=== PATIENT | female | born 1975 | race American Indian/Alaskan Native ===

== ENCOUNTER 2021-03-19 14:57 | Inpatient (IN) | payer OTHER ==
--- NOTE | 2021-03-19 15:08 | Emergency Department Report ---
ED Neuro Deficit HPI - General Chief Complaint: Neuro Symptoms/Deficit Stated Complaint: aphasia Time Seen by Provider: 03/19/21 14:58 - History of Present Illness Initial Comments: Patient presents by ambulance secondary to stroke-like symptoms. She was at [facility] approximately 30 minutes prior to arrival. She had difficulty speaking. EMS was called. They noticed that she was having difficulty speaking. This seems to have abated during transport. Upon arrival here, patient has no complaint. Neurologically, she states that she does not have any weakness on one side or the other. She has no headache. No blurred vision or double vision per there is no numbness or tingling in the arms or legs or face. She never had symptoms like this before. Symptoms seem to have lasted approximately 30 minutes or less. - Related Data Allergies/Adverse Reactions: Allergies Allergy/AdvReac Type Severity Reaction Status Date / Time No Known Allergies Allergy Verified 03/19/21 15:16 ED Review of Systems ROS: Stated complaint: aphasia Other details as noted in HPI Comment: All other systems reviewed and negative Constitutional: denies: fever Eyes: denies: vision change ENT: denies: throat pain Respiratory: denies: cough Cardiovascular: denies: chest pain Endocrine: denies: unexplained weight loss Gastrointestinal: denies: abdominal pain Genitourinary: denies: dysuria Musculoskeletal: denies: back pain Skin: denies: rash Neurological: as per HPI Hematological/Lymphatic: denies: easy bruising ED Neuro Physical Exam - General Limitations: No Limitations, Other (Pulse ox noted and normal by EMS) General appearance: alert, in no apparent distress Suspected Stroke: Yes - Head Head exam: Present: atraumatic, normocephalic - Eye Eye exam: Present: normal appearance, EOMI. Absent: scleral icterus - ENT ENT exam: Present: normal orophraynx, normal external ear exam - Neck Neck exam: Present: normal inspection. Absent: meningismus - Respiratory Respiratory exam: Present: normal lung sounds bilaterally. Absent: respiratory distress - Cardiovascular Cardiovascular Exam: Present: regular rate, normal rhythm - GI/Abdominal GI/Abdominal exam: Present: soft. Absent: tenderness - Extremities Exam Extremities exam: Present: normal capillary refill. Absent: pedal edema - Back Exam Back exam: Absent: CVA tenderness (R), CVA tenderness (L) - Neurological Exam Neurological exam: Present: alert, oriented X3, CN II-XII intact. Absent: motor sensory deficit - NIHSS Assessment Interval: Baseline 1a. Level of Consciousness: alert/keenly responsive 1b. LOC Questions: answers both correctly 1c. LOC Commands: performs tasks correctly 2. Best Gaze: normal 3. Visual: no visual loss 4. Facial Palsy: normal symmetrical movement 5b. Motor Arm Right: no drift 5a. Motor Arm Left: no drift 6a. Motor Leg Left: no drift 6b. Motor Leg Right: no drift 7. Limb Ataxia: absent 8. Sensory: normal 9. Best Language: no aphasia 10. Dysarthria: normal 11. Extinction/Inattention: no abnormality Total Score: 0 Stroke Severity: No Stroke Symptoms - Psychiatric Psychiatric exam: Present: normal affect, normal mood - Skin Skin exam: Present: warm, dry ED Course Vital Signs 03/19/21 15:16 Temperature 98 F Pulse Rate 78 Respiratory 16 Rate Blood Pressure 156/93 [Left] O2 Sat by Pulse 99 Oximetry - Reevaluation(s) Reevaluation #1: 03/19/21 14:55 EMS was met upon arrival. Patient was taken emergently to CT. Old records noted. Reevaluation #2: 03/19/21 15:32 Patient was discussed with the neurologist. CT was noted. There is no i ndication for thrombolytic therapy as the patient has a resolved presentation at this time with an NIH score of zero. Reevaluation #3: 03/19/21 16:54 Patient was admitted here. Case was discussed with the [facility] telephonic physician. They do not have the ability to facilitate an outpatient work-up given the Covid pandemic. They also have no beds available for this patient. Case was discussed with the hospitalist here who agrees to admit. - Lab Data Result diagrams: 03/19/21 15:19 03/19/21 15:19 Lab Results 03/19/21 03/19/21 03/19/21 Range/Units 15:02 15:19 15:19 WBC 6.3 (4.5-11.0) K/mm3 RBC 5.90 H (3.65-5.03) M/mm3 Hgb 15.2 H (10.1-14.3) gm/dl Hct 48.0 H (30.3-42.9) % MCV 81 (79-97) fl MCH 26 L (28-32) pg MCHC 32 (30-34) % RDW 14.3 (13.2-15.2) % Plt Count 274 (140-440) K/mm3 Lymph % (Auto) 27.5 (13.4-35.0) % Walsh % (Auto) 7.6 H (0.0-7.3) % Eos % (Auto) 4.0 (0.0-4.3) % Baso % (Auto) 1.1 (0.0-1.8) % Lymph # (Auto) 1.7 (1.2-5.4) K/mm3 Walsh # (Auto) 0.5 (0.0-0.8) K/mm3 Eos # (Auto) 0.3 (0.0-0.4) K/mm3 Baso # (Auto) 0.1 (0.0-0.1) K/mm3 Seg Neutrophils % 59.8 (40.0-70.0) % Seg Neutrophils # 3.8 (1.8-7.7) K/mm3 PT 12.6 (12.2-14.9) Sec. INR 0.85 L (0.87-1.13) APTT 24.5 (24.2-36.6) Sec. Thrombin Time 17.3 (15.1-19.6) Sec. Sodium (137-145) mmol/L Potassium (3.6-5.0) mmol/L Chloride (98-107) mmol/L Carbon Dioxide (22-30) mmol/L Anion Gap mmol/L BUN (7-17) mg/dL Creatinine (0.6-1.2) mg/dL Estimated GFR ml/min BUN/Creatinine Ratio % Glucose (65-100) mg/dL POC Glucose 79 (70-105) mg/dL Calcium (8.4-10.2) mg/dL Total Creatine Kinase (30-135) units/L CK-MB (CK-2) (0.0-4.0) ng/mL CK-MB (CK-2) Rel Index (0-4) Troponin T (0.00-0.029) ng/mL 03/19/21 Range/Units 15:19 WBC (4.5-11.0) K/mm3 RBC (3.65-5.03) M/mm3 Hgb (10.1-14.3) gm/dl Hct (30.3-42.9) % MCV (79-97) fl MCH (28-32) pg MCHC (30-34) % RDW (13.2-15.2) % Plt Count (140-440) K/mm3 Lymph % (Auto) (13.4-35.0) % Walsh % (Auto) (0.0-7.3) % Eos % (Auto) (0.0-4.3) % Baso % (Auto) (0.0-1.8) % Lymph # (Auto) (1.2-5.4) K/mm3 Walsh # (Auto) (0.0-0.8) K/mm3 Eos # (Auto) (0.0-0.4) K/mm3 Baso # (Auto) (0.0-0.1) K/mm3 Seg Neutrophils % (40.0-70.0) % Seg Neutrophils # (1.8-7.7) K/mm3 PT (12.2-14.9) Sec. INR (0.87-1.13) APTT (24.2-36.6) Sec. Thrombin Time (15.1-19.6) Sec. Sodium 138 (137-145) mmol/L Potassium 3.3 L (3.6-5.0) mmol/L Chloride 100.8 (98-107) mmol/L Carbon Dioxide 22 (22-30) mmol/L Anion Gap 19 mmol/L BUN 16 (7-17) mg/dL Creatinine 0.6 (0.6-1.2) mg/dL Estimated GFR > 60 ml/min BUN/Creatinine Ratio 27 % Glucose 89 (65-100) mg/dL POC Glucose (70-105) mg/dL Calcium 9.5 (8.4-10.2) mg/dL Total Creatine Kinase 112 (30-135) units/L CK-MB (CK-2) 1.3 (0.0-4.0) ng/mL CK-MB (CK-2) Rel Index 1.1 (0-4) Troponin T < 0.010 (0.00-0.029) ng/mL Rhythm strip: Normal sinus rhythm without ectopy per monitor observe 10 seconds. - EKG Data -: EKG Interpreted by Me 03/19/21 16:55 EKG shows normal sinus rhythm with normal intervals per there is no ectopy noted. There is no old EKG for comparison. - Radiology Data Radiology results: report reviewed - Medical Decision Making Patient presents by EMS secondary to expressive aphasia. This is consistent with TIA as her symptoms have completely resolved. And a score is 0. There is no indication for thrombolytic therapy. We cannot facilitate expedited outpatient work-up. Based on that, and due to the Covid pandemic, patient be kept here for her completed TIA work-up. There is no evidence of tumor or mass. There is no evidence of bleed. She did not have a headache suggestive of an atypical migraine. Critical Care Time: No Critical care attestation.: If time is entered above; I have spent that time in minutes in the direct care of this critically ill patient, excluding procedure time. ED Disposition Clinical Impression: TIA (transient ischemic attack) Disposition: ADMITTED INPATIENT Is pt being admited?: Yes Condition: Stable
[2021-03-19 15:30] LABS: Basophils # (Auto) 0.1 K/mm3 (0.0-0.1); Basophils % (Auto) 1.1 % (0.0-1.8); Eosinophils # (Auto) 0.3 K/mm3 (0.0-0.4); Hemoglobin 15.2 gm/dl (10.1-14.3); Lymphocytes # (Auto) 1.7 K/mm3 (1.2-5.4); Lymphocytes % (Auto) 27.5 % (13.4-35.0); Mean Corpuscular HGB Conc 32 % (30-34); Mean Corpuscular Volume 81 fl (79-97); Monocytes # (Auto) 0.5 K/mm3 (0.0-0.8); Monocytes % (Auto) 7.6 % (0.0-7.3); Platelet Count 274 K/mm3 (140-440); Red Cell Distribution Width 14.3 % (13.2-15.2)
--- NOTE | 2021-03-19 15:35 | Cat Scan Report ---
CT BRAIN: 03/19/2021 INDICATION / CLINICAL INFORMATION: Stroke symptoms. No information provided. COMPARISON: None available. FINDINGS: BRAIN/INTRACRANIAL STRUCTURES: Unenhanced CT images of the brain demonstrate no evidence of abnormali ty. Ventricles and sulci are normal in size and shape. There is no evidence of ischemic injury, hemorrhage, or mass. There are no abnormal extra-axial fluid collections. EXTRACRANIAL STRUCTURES: Unremarkable. IMPRESSION: Normal CT of the brain. Notification: in the emergency department unavailable at 1530 hours ET. Message on report availa bility transmitted. All CT scans at this location are performed using dose reduction to ALARA by means of automated expos ure control. Signer Name: Petr Hurley MD Signed: 03/19/2021 3:30 PM Workstation Name: [employer]
--- NOTE | 2021-03-19 15:50 | Emergency Department Report ---
ED Neuro Deficit HPI - General Chief Complaint: Neuro Symptoms/Deficit Stated Complaint: aphasia Time Seen by Provider: 03/19/21 14:58 Source: patient Mode of arrival: Ambulatory Limitations: No Limitations, Other (Pulse ox noted and normal by EMS) - History of Present Illness Initial Comments: [facility] Consult Note # Demographics Consult Type: Acute Stroke Level 1 (0-4.5 hrs) Patient Location: Emergency Room First Name: Arti Last Name: Nolberto Date of : 1975 Age: 45 Gender: Female Facility: [facility] Time of Initial Page ( Time): 03/19/2021, 14:42 Time of Return Call ( Time): 03/19/2021, 14:43 # HPI Chief Complaint: speech changes Handedness: Right History: Symptoms resolved after grocery shopping with aphasia. EMS said at 2:20pm with expressive aphasia. The patient denied associated headache or history of migraine. Last Known Normal: I have collected independent history specific to time last normal or last known well. We have collaborated with the provider and at this time, we have the most current timeline with the information that is available. 2:10pm Duration: resolved minutes Possible Thrombolytic candidate: not on warfarin or NOACs Associated Symptoms: no headache Quality: no numbness no weakness word finding difficulty # Scores Time of exam and NIHSS ( Time): 03/19/2021, 15:00 Level of Consciousness 1a: [0] = Alert; keenly responsive LOC Questions 1b: [0] = Answers both questions correctly LOC Commands 1c: [0] = Performs both tasks correctly Best Gaze 2: [0] = Normal Visual 3: [0] = No visual loss Facial Palsy 4: [0] = Normal symmetrical movements Motor Arm Left 5a: [0] = No drift Motor Arm Right 5b: [0] = No drift Motor Leg Left 6a: [0] = No drift Motor Leg Right 6b: [0] = No drift Limb Ataxia 7: [0] = Absent Sensory 8: [0] = Normal Best Language 9: [0] = No aphasia Dysarthria 10: [0] = Normal Extinction and Inattention 11: [0] = No abnormality NIHSS Total: 0 # Exam SBP: 147 DBP: 96 Mental Status: awake alert and oriented x 3 follows commands Language: normal speech # ROS Constitutional: no fever Pulmonary: no shortness of breath Cardiovascular: no chest pain # PMH-FH-SH Past Medical History: denies Social History: non-smoker non-drinker no drugs Medications: Diclonfenac Allergies: NKDA # Data Glucose: [address] personally read by me (Eastern Time): 03/19/2021, 15:[address]: no bleed preliminarily reviewed by me, please refer to radiology read for official reading # Assessment Impression: Stroke Mimic Transient Ischemic Attack TIA versus stroke mimic (? migraine) - no reported history of the latter # Plan Thrombolytic/Intervention: NOT IV Thrombolysis or IA Intervention candidate Thrombolytic Exclusion (< 3 hour window): NIHSS = 0 Target Blood Pressure: SBP < 220 Imaging: (urgency: STAT): CT Angiogram Head and CT Angiogram Neck AND call back with results if abnormal Imaging: (urgency: routine): MRI Brain without contrast Diagnostic Test: echo without bubble study Therapy/Evaluation: NPO until swallow evaluation PT/OT evaluation Medication: aspirin 81 mg PLUS clopidogrel (Plavix) 75 mg for 21 days, then monotherapy therafter start statin with goal of LDL < 70 DVT Prophylaxis: SCD chemical DVT prophylaxis Other: LDL < 70 permissive hypertension telemetry monitoring I have discussed my recommendations with the referring provider Disposition: admit - Related Data Allergies/Adverse Reactions: Allergies Allergy/AdvReac Type Severity Reaction Status Date / Time No Known Allergies Allergy Verified 03/19/21 15:16 ED Review of Systems ROS: Stated complaint: aphasia Other details as noted in HPI Constitutional: denies: fever Eyes: denies: vision change ENT: denies: throat pain Respiratory: denies: cough Cardiovascular: denies: chest pain Endocrine: denies: unexplained weight loss Gastrointestinal: denies: abdominal pain Genitourinary: denies: dysuria Musculoskeletal: denies: back pain Skin: denies: rash Neurological: as per HPI Hematological/Lymphatic: denies: easy bruising ED Past Medical Hx - Past Medical History Previous Medical History?: Yes Hx Arthritis: Yes - Surgical History Past Surgical History?: No ED Neuro Physical Exam - General Limitations: No Limitations, Other (Pulse ox noted and normal by EMS) General appearance: alert, in no apparent distress Suspected Stroke: Yes - NIHSS Assessment Interval: Baseline (Please see NIHSS in copied BSL note.) 1a. Level of Consciousness: alert/keenly responsive 1b. LOC Questions: answers both correctly 1c. LOC Commands: performs tasks correctly 2. Best Gaze: normal 3. Visual: no visual loss 4. Facial Palsy: normal symmetrical movement 5b. Motor Arm Right: no drift 5a. Motor Arm Left: no drift 6a. Motor Leg Left: no drift 6b. Motor Leg Right: no drift 7. Limb Ataxia: absent 8. Sensory: normal 9. Best Language: no aphasia 10. Dysarthria: normal 11. Extinction/Inattention: no abnormality Total Score: 0 Stroke Severity: No Stroke Symptoms ED Course Vital Signs 03/19/21 15:16 Temperature 98 F Pulse Rate 78 Respiratory 16 Rate Blood Pressure 156/93 [Left] O2 Sat by Pulse 99 Oximetry - Lab Data Result diagrams: 03/19/21 15:19 Lab Results 03/19/21 03/19/21 Range/Units 15:02 15:19 WBC 6.3 (4.5-11.0) K/mm3 RBC 5.90 H (3.65-5.03) M/mm3 Hgb 15.2 H (10.1-14.3) gm/dl Hct 48.0 H (30.3-42.9) % MCV 81 (79-97) fl MCH 26 L (28-32) pg MCHC 32 (30-34) % RDW 14.3 (13.2-15.2) % Plt Count 274 (140-440) K/mm3 Lymph % (Auto) 27.5 (13.4-35.0) % [place] % (Auto) 7.6 H (0.0-7.3) % Eos % (Auto) 4.0 (0.0-4.3) % Baso % (Auto) 1.1 (0.0-1.8) % Lymph # (Auto) 1.7 (1.2-5.4) K/mm3 [place] # (Auto) 0.5 (0.0-0.8) K/mm3 Eos # (Auto) 0.3 (0.0-0.4) K/mm3 Baso # (Auto) 0.1 (0.0-0.1) K/mm3 Seg Neutrophils % 59.8 (40.0-70.0) % Seg Neutrophils # 3.8 (1.8-7.7) K/mm3 POC Glucose 79 (70-105) mg/dL Critical care attestation.: If time is entered above; I have spent that time in minutes in the direct care of this critically ill patient, excluding procedure time. ED Disposition Clinical Impression: TIA (transient ischemic attack) Disposition: ADMITTED INPATIENT Is pt being admited?: Yes Condition: Stable
[2021-03-19 15:52] LABS: INR 0.85 (0.87-1.13); Partial Thromboplastin Time 24.5 Sec. (24.2-36.6); Thrombin Time 17.3 Sec. (15.1-19.6)
[2021-03-19 15:54] LABS: Creatine Kinase MB 1.3 ng/mL (0.0-4.0)
[2021-03-19 15:56] LABS: Blood Urea Nitrogen 16 mg/dL (7-17); Calcium 9.5 mg/dL (8.4-10.2); Hemolysis Index 6
[2021-03-19 16:00] LABS: BUN/Creatinine Ratio 27
[2021-03-19] MEDS ORDERED: ASPIRIN 81 MG TAB CHEW PO ONE (17:32)
[2021-03-19] MEDS ORDERED: PROMETHAZINE 25 MG RECT SUPP PR PRN ×2 (17:36→17:45)
[2021-03-19] MEDS ORDERED: ONDANSETRON 4 MG/2 ML INJ IV PRN ×2 (17:36→17:45)
[2021-03-19] MEDS ORDERED: MAGNESIUM HYDROXIDE (MOM) ORAL LIQD UDC PO PRN ×2 (17:36→17:45)
[2021-03-19] MEDS ORDERED: ACETAMINOPHEN 325 MG TAB PO PRN (17:36)
[2021-03-19] MEDS ORDERED: METOCLOPRAMIDE 10 MG TAB PO PRN ×2 (17:36→17:45)
[2021-03-19] MEDS ORDERED: oxyCODONE /ACETAMINOPHEN 5-325MG TAB PO PRN (17:45)
[2021-03-19] MEDS ORDERED: HYDROmorphone 1 MG/1 ML INJ IV PRN (17:45)
--- NOTE | 2021-03-19 19:32 | Cat Scan Report ---
CT angio head INDICATION / CLINICAL INFORMATION: 45 years Female; tia. TECHNIQUE: Thin cut axial images obtained through the head during IV bolus contrast administration. S agittal, coronal, and 3 plane MIP reconstructions performed by the technologist. NASCET type criteria used evaluate stenoses. Automated exposure control utilized for radiation reduction purposes. . COMPARISON: None available. FINDINGS: INTERNAL CAROTID ARTERIES: No significant narrowing appreciated. VERTEBROBASILAR SYSTEM: No significant narrowing appreciated. DISTAL BRANCHES: Distal branches of the anterior, middle, and posterior cerebral arteries are fairly symmetric in appearance and number. ANEURYSM: None identified. ADDITIONAL FINDINGS: Remainder of the surrounding soft tissues are grossly normal. IMPRESSION: 1. No significant abnormality on this CTA of the head. 2. Note, this constellation of studies does not exclude ischemia. Follow-up with diffusion imaging by MRI, as clinically warranted. Signer Name: Aris Anne MD, III Signed: 03/19/2021 7:27 PM Workstation Name: [id number]
--- NOTE | 2021-03-19 19:35 | Cat Scan Report ---
CT angio neck INDICATION / CLINICAL INFORMATION: 45 years Female; tia. TECHNIQUE: Thin cut axial images obtained through the head during IV bolus contrast administration. S agittal, coronal, and 3 plane MIP reconstructions performed by the technologist. NASCET type criteria used evaluate stenoses. All CT scans at this location are performed using CT dose reduction for ALAR A by means of automated exposure control. . COMPARISON: None available. FINDINGS: ARCH: Normal aortic arch branching suggested. CAROTID ARTERIES: The visualized common and internal carotid arteries are widely patent. VERTEBRAL ARTERIES: Codominant vertebral system seen. No significant stenosis appreciated. ADDITIONAL FINDINGS: Remainder of the surrounding soft tissues are grossly normal. IMPRESSION: No significant stenosis appreciated on this CTA of the neck. Signer Name: Aris Anne MD, III Signed: 03/19/2021 7:31 PM Workstation Name: [facility] INSTITUTEHigh[facility] PressKEVIN [id number]
--- NOTE | 2021-03-19 20:18 | History and Physical Report ---
History of Present Illness Date of admission: 03/19/21 16:56 Chief complaint: I could not talk right History of present illness: 45 YO Female with no PMH presents ED for evaluation. Patient reports "I could not talk right". Patient states that she experienced a sudden onset of slurred speech approximate 30 minutes prior to arrival. Patient transported [facility] via private vehicle for further care and evaluation of the aforementioned symptoms. The patient was seen and evaluated in the emergency department. All lab and imaging studies reviewed. Patient was found to have a focal neurologic deficit in the emergency department. A code stroke was called. Teleneurology was consulted. The patient was found to have clinical symptoms consistent with CVA. Patient placed in observation status and admitted to medical floor and initiated on CVA protocol. Patient had fever, chills, chest pain, palpitation, productive cough, trauma, syncope, recent ill contacts, or known exposure to COVID-19. No prior admission for review. No medication listed at time of admission reconciliation. Past History Past Medical History: No medical history Past Surgical History: No surgical history Social history: , lives with family Family history: hypertension Medications and Allergies Allergies Allergy/AdvReac Type Severity Reaction Status Date / Time No Known Allergies Allergy Verified 03/19/21 15:16 Active Meds: Active Medications Acetaminophen (Acetaminophen 325 Mg Tab) 650 mg PO Q4H PRN PRN Reason: Pain, Mild (1-3) Aspirin (Aspirin 325 Mg Tab) 325 mg PO QDAY ANGELI Atorvastatin Calcium (Atorvastatin 40 Mg Tab) 40 mg PO QHS ANGELI Bisacodyl (Bisacodyl 10 Mg Rect Supp) 10 mg MI QDAY PRN PRN Reason: Constipation Hydromorphone HCl (Hydromorphone 1 Mg/1 Ml Inj) 0.5 mg IV Q23H PRN PRN Reason: Pain , Severe (7-10) Magnesium Hydroxide (Magnesium Hydroxide (Mom) Oral Liqd Udc) 30 ml PO Q4H PRN PRN Reason: Constipation Metoclopramide HCl (Metoclopramide 10 Mg Tab) 10 mg PO Q6H PRN PRN Reason: Nausea And Vomiting Ondansetron HCl (Ondansetron 4 Mg/2 Ml Inj) 4 mg IV Q8H PRN PRN Reason: Nausea And Vomiting Oxycodone/Acetaminophen (Oxycodone /Acetaminophen 5-325mg Tab) 1 tab PO Q16H P RN PRN Reason: Pain, Moderate (4-6) Promethazine HCl (Promethazine 25 Mg Rect Supp) 25 mg MI Q6H PRN PRN Reason: Nausea And Vomiting Sodium Chloride (Sodium Chloride 0.9% 10 Ml Flush Syringe) 10 ml IV PRN PRN PRN Reason: LINE FLUSH Review of Systems Constitutional: no weight loss, no weight gain Ears, nose, mouth and throat: no ear pain, no tinnitis, no decreased hearing, no nasal congestion Breasts: no change in shape, no mass Cardiovascular: no chest pain, no orthopnea, no palpitations, no edema, no syncope Respiratory: no cough, no excessive sputum, no hemoptysis Gastrointestinal: no abdominal pain, no nausea, no vomiting, no diarrhea, no change in bowel habits Genitourinary Female: no pelvic pain, no flank pain, no dysuria, no urinary frequency, no urgency Rectal: no pain, no incontinence, no bleeding Musculoskeletal: no neck stiffness, no neck pain, no arm numbness/tingling, no low back pain Integumentary: no rash, no pruritis, no redness, no sores, no wounds Neurological: weakness, change in speech, no tingling Psychiatric: no anxiety, no memory loss, no change in sleep habits, no sleep disturbances, no insomnia, no change in libido, no suicidal ideation Endocrine: no cold intolerance, no polyphagia, no excessive thirst, no polyuria, no nocturia Hematologic/Lymphatic: no easy bruising Allergic/Immunologic: no urticaria, no allergic rhinitis, no wheezing Exam - Constitutional Vitals: Temp Pulse Resp BP Pulse Ox 98 F 74 16 154/93 96 03/19/21 15:16 03/19/21 17:52 03/19/21 17:52 03/19/21 17:52 03/19/21 17:52 General appearance: Present: no acute distress, well-nourished - EENT Eyes: Present: PERRL ENT: hearing intact, clear oral mucosa - Neck Neck: Present: supple, normal ROM - Respiratory Respiratory effort: normal Respiratory: bilateral: CTA - Cardiovascular Heart Sounds: Present: S1 & S2. Absent: rub, click - Extremities Extremities: pulses symmetrical, No edema Peripheral Pulses: within normal limits - Abdominal General gastrointestinal: Present: soft, non-tender, non-distended, normal bowel sounds Female genitourinary: Present: normal - Integumentary Integumentary: Present: clear, warm, dry - Musculoskeletal Musculoskeletal: gait normal, strength equal bilaterally - Psychiatric Psychiatric: appropriate mood/affect, intact judgment & insight - Neurologic Neurologic: CNII-XII intact, moves all extremities HEART Score - HEART Score Troponin: Troponin T < 0.010 ng/mL (0.00-0.029) 03/19/21 15:19 Results - Labs CBC & Chem 7: 03/19/21 15:19 03/19/21 15:19 Labs: Abnormal lab results 03/19/21 03/19/21 03/19/21 Range/Units 15:19 15:19 15:19 RBC 5.90 H (3.65-5.03) M/mm3 Hgb 15.2 H (10.1-14.3) gm/dl Hct 48.0 H (30.3-42.9) % MCH 26 L (28-32) pg [place] % (Auto) 7.6 H (0.0-7.3) % INR 0.85 L (0.87-1.13) Potassium 3.3 L (3.6-5.0) mmol/L Assessment and Plan - Patient Problems (1) CVA (cerebral vascular accident) Current Visit: Yes Status: Acute Plan to address problem: CVA protocol: CT head, neuro check, seizure precautions, physical therapy consulted, Occupational Therapy consulted, speech therapy consulted, antiplatelet therapy, lipid panel, statin therapy, telemetry neurology consulted, echocardiogram, carotid Doppler. (2) DVT prophylaxis Current Visit: Yes Status: Acute Plan to address problem: SCD to bilateral lower extremities while in bed, patient is ambulatory
[2021-03-20 06:10] LABS: Chol/HDL Ratio 3.89 %
--- NOTE | 2021-03-20 10:09 | Progress Note ---
Assessment and Plan Assessment and plan: Acute CVA Hypokalemia 03/20/2021. Patient reportedly with dysarthria only for approximately 30 minutes prior to admission. Continue CVA protocol. Follow-up echocardiogram and MRI. Await PT/OT/speech evaluation. Continue secondary prevention with atorvastatin and aspirin. Neurology consultation pending History Interval history: No new issues overnight Hospitalist Physical - Constitutional Vitals: Temp Pulse Resp BP Pulse Ox 98 F 68 20 114/75 98 03/19/21 15:16 03/20/21 05:00 03/20/21 05:00 03/20/21 05:00 03/20/21 05:00 General appearance: Present: no acute distress, well-nourished - EENT Eyes: Present: PERRL, EOM intact ENT: hearing intact, clear oral mucosa, dentition normal - Neck Neck: Present: supple, normal ROM - Respiratory Respiratory effort: normal Respiratory: bilateral: CTA - Cardiovascular Rhythm: regular Heart Sounds: Present: S1 & S2. Absent: gallop, rub - Extremities Extremities: no ischemia, No edema, Full ROM - Abdominal General gastrointestinal: soft, non-tender, non-distended, normal bowel sounds - Integumentary Integumentary: Present: clear, warm, dry - Neurologic Neurologic: CNII-XII intact, moves all extremities HEART Score - HEART Score Troponin: Troponin T < 0.010 ng/mL (0.00-0.029) 03/19/21 15:19 Results - Labs CBC & Chem 7: 03/19/21 15:19 03/19/21 15:19 Labs: Laboratory Last Values WBC 6.3 K/mm3 (4.5-11.0) 03/19/21 15:19 RBC 5.90 M/mm3 (3.65-5.03) H 03/19/21 15:19 Hgb 15.2 gm/dl (10.1-14.3) H 03/19/21 15:19 Hct 48.0 % (30.3-42.9) H 03/19/21 15:19 MCV 81 fl (79-97) 03/19/21 15:19 MCH 26 pg (28-32) L 03/19/21 15:19 MCHC 32 % (30-34) 03/19/21 15:19 RDW 14.3 % (13.2-15.2) 03/19/21 15:19 Plt Count 274 K/mm3 (140-440) 03/19/21 15:19 Lymph % (Auto) 27.5 % (13.4-35.0) 03/19/21 15:19 Lea % (Auto) 7.6 % (0.0-7.3) H 03/19/21 15:19 Eos % (Auto) 4.0 % (0.0-4.3) 03/19/21 15:19 Baso % (Auto) 1.1 % (0.0-1.8) 03/19/21 15:19 Lymph # (Auto) 1.7 K/mm3 (1.2-5.4) 03/19/21 15:19 Lea # (Auto) 0.5 K/mm3 (0.0-0.8) 03/19/21 15:19 Eos # (Auto) 0.3 K/mm3 (0.0-0.4) 03/19/21 15:19 Baso # (Auto) 0.1 K/mm3 (0.0-0.1) 03/19/21 15:19 Seg Neutrophils % 59.8 % (40.0-70.0) 03/19/21 15:19 Seg Neutrophils # 3.8 K/mm3 (1.8-7.7) 03/19/21 15:19 PT 12.6 Sec. (12.2-14.9) 03/19/21 15:19 INR 0.85 (0.87-1.13) L 03/19/21 15:19 APTT 24.5 Sec. (24.2-36.6) 03/19/21 15:19 Thrombin Time 17.3 Sec. (15.1-19.6) 03/19/21 15:19 Sodium 138 mmol/L (137-145) 03/19/21 15:19 Potassium 3.3 mmol/L (3.6-5.0) L 03/19/21 15:19 Chloride 100.8 mmol/L (98-107) 03/19/21 15:19 Carbon Dioxide 22 mmol/L (22-30) 03/19/21 15:19 Anion Gap 19 mmol/L 03/19/21 15:19 BUN 16 mg/dL (7-17) 03/19/21 15:19 Creatinine 0.6 mg/dL (0.6-1.2) 03/19/21 15:19 Estimated GFR > 60 ml/min 03/19/21 15:19 BUN/Creatinine Ratio 27 % 03/19/21 15:19 Glucose 89 mg/dL (65-100) 03/19/21 15:19 POC Glucose 79 mg/dL (70-105) 03/19/21 15:02 Calcium 9.5 mg/dL (8.4-10.2) 03/19/21 15:19 Total Creatine Kinase 112 units/L (30-135) 03/19/21 15:19 CK-MB (CK-2) 1.3 ng/mL (0.0-4.0) 03/19/21 15:19 CK-MB (CK-2) Rel Index 1.1 (0-4) 03/19/21 15:19 Troponin T < 0.010 ng/mL (0.00-0.029) 03/19/21 15:19 Triglycerides 83 mg/dL (2-149) 03/20/21 04:00 Cholesterol 187 mg/dL (50-199) 03/20/21 04:00 LDL Cholesterol Direct 123 mg/dL (50-130) 03/20/21 04:00 HDL Cholesterol 48 mg/dL (40-59) 03/20/21 04:00 Cholesterol/HDL Ratio 3.89 % 03/20/21 04:00 Active Medications - Current Medications Current Medications: Generic Name Dose Route Start Last Admin Trade Name Freq PRN Reason Stop Dose Admin Acetaminophen 650 mg 03/19/21 17:45 Acetaminophen 325 Mg Tab PO Q4H PRN Pain, Mild (1-3) Aspirin 325 mg 03/20/21 10:00 Aspirin 325 Mg Tab PO QDAY ANGELI Atorvastatin Calcium 40 mg 03/19/21 22:00 03/20/21 00:35 Atorvastatin 40 Mg Tab PO 40 mg QHS ANGELI Administration Bisacodyl 10 mg 03/19/21 17:45 Bisacodyl 10 Mg Rect Supp GA QDAY PRN Constipation Hydromorphone HCl 0.5 mg 03/19/21 17:45 Hydromorphone 1 Mg/1 Ml Inj IV Q23H PRN Pain , Severe (7-10) Magnesium Hydroxide 30 ml 03/19/21 17:36 Magnesium Hydroxide (Mom) Oral Liqd Udc PO Q4H PRN Constipation Metoclopramide HCl 10 mg 03/19/21 17:45 Metoclopramide 10 Mg Tab PO Q6H PRN Nausea And Vomiting Ondansetron HCl 4 mg 03/19/21 17:45 Ondansetron 4 Mg/2 Ml Inj IV Q8H PRN Nausea And Vomiting Oxycodone/Acetaminophen 1 tab 03/19/21 17:45 Oxycodone /Acetaminophen 5-325mg Tab PO Q16H PRN Pain, Moderate (4-6) Promethazine HCl 25 mg 03/19/21 17:36 Promethazine 25 Mg Rect Supp GA Q6H PRN Nausea And Vomiting Sodium Chloride 10 ml 03/19/21 17:45 Sodium Chloride 0.9% 10 Ml Flush Syringe IV PRN PRN LINE FLUSH
--- NOTE | 2021-03-20 10:46 | Magnetic Resonance Report ---
MRI BRAIN WITHOUT CONTRAST INDICATION / CLINICAL INFORMATION: tia. TECHNIQUE: Multiplanar, multisequence MR images of the brain were obtained. COMPARISON: Head CT 03/19/2021 FINDINGS: BRAIN / INTRACRANIAL CONTENTS: A region of restricted diffusion is seen along the lateral aspect of the left parietal and occipital lobes. Corresponding decreased signal intensity is seen on ADC map imaging. Cortical hyperintensity i s seen in this same distribution on FLAIR and T2-weighted imaging. Findings indicate the presence of an acute cortical infarction probably in a posterior division left MCA distribution. No additional re gions of abnormal signal intensity are identified. There is no evidence of hemorrhagic transformation . Ventricles and cortical sulci are normal in size and configuration. There is no mass effect. No evide nce of intracranial hemorrhage or extra-axial fluid collection is seen. The brainstem and cerebellum have an unremarkable appearance. MIDLINE STRUCTURES:No abnormalities are seen to involve the pituitary gland. Pineal region has an unr emarkable appearance. CRANIOCERVICAL JUNCTION: No abnormalities are identified at the craniocervical junction. VASCULAR FLOW-VOIDS: Normal flow-voids are present within the major intracranial vessels. ORBITS: The orbits have an unremarkable appearance. SINUSES / MASTOIDS: There is no indication of inflammatory disease in the paranasal sinuses or mastoi d air cells. IMPRESSION: 1. Findings indicate acute infarction along the posterior lateral aspect of the left parietal and occ ipital lobes as described above. There is no indication of hemorrhagic transformation. Signer Name: Bertin Campbell MD Signed: 03/20/2021 10:41 AM Workstation Name: [id number]
[2021-03-20] MEDS ORDERED: POTASSIUM CHLORIDE ER 20 MEQ TAB PO ONE (11:32)
[2021-03-20] MEDS: ASPIRIN 325 MG TAB PO SCH (12:14)
--- NOTE | 2021-03-20 13:17 | Electrocardiograph Report ---
[facility] Test Date: 2021-03-19 Test Time: 15:34:24 Pat Name: LUL RODRIGUZE Department: Room: A476 1 Gender: F Carpenter Assistant: COURTNEY : 1975 Requested By: NAZANIN PIERCE Order Number: [id number] Reading MD: Oneil Yap Measurements Intervals Lilly Rate: 81 P: 65 OK: 158 QRS: 36 QRSD: 95 T: -5 QT: 362 QTc: 420 Interpretive Statements Sinus rhythm Low voltage, precordial leads Borderline T abnormalities, diffuse leads No previous ECG available for comparison Electronically Signed On 03-20-2021 13:16:50 EST by Oneil Yap
--- NOTE | 2021-03-20 15:41 | Vascular Lab Report ---
DUPLEX DOPPLER ULTRASOUND CAROTID, BILATERAL INDICATION / CLINICAL INFORMATION: stroke. COMPARISON: CTA neck 03/19/2021. FINDINGS: RIGHT CAROTID: No significant atherosclerotic plaque. - PLAQUE ESTIMATE (%): < 50% - CCA velocity: 93 cm/sec. - ICA peak systolic velocity: 114 cm/sec. - ICA/CCA PSV Ratio: Less than 2. Right Vertebral Artery: Antegrade flow. LEFT CAROTID: Mild noncalcified atherosclerotic plaque. - PLAQUE ESTIMATE (%): < 50% - CCA velocity: 96 cm/sec. - ICA peak systolic velocity: 102 cm/sec. - ICA/CCA PSV Ratio: Less than 2. Left Vertebral Artery: Antegrade flow. IMPRESSION: 1. Right Internal Carotid Artery: Less than 50% diameter stenosis. 2. Left Internal Carotid Artery: Less than 50% diameter stenosis. Velocity criteria are extrapolated from diameter data as defined by the Society of Radiologists in Ul trasound Consensus Conference, Radiology 2003; 229;340-346. NO STENOSIS (NORMAL) - Plaque = none; ICA PSV < 125 cm/sec; ICA/CCA PSV Ratio < 2.0 <50% STENOSIS - Plaque < 50%; ICA PSV < 125 cm/sec; ICA/CCA PSV Ratio < 2.0 50-69% STENOSIS - Plaque > 50%; ICA PSV = 125-230 cm/sec; ICA/CCA PSV Ratio = 2.0-4.0 >70% BUT <100% STENOSIS - Plaque > 50%; ICA PSV > 230 cm/sec; ICA/CCA PSV Ratio > 4.0 NEAR OCCLUSION - Plaque = visible lumen; ICA PSV = high/low/none; ICA/CCA PSV Ratio = variable TOTAL OCCLUSION - Plaque = no lumen; ICA PSV = none; ICA/CCA PSV Ratio = N/A Scribed by: Marisela Lagos RDMS, RVT Scribed: 03/20/2021 12:22 PM I have reviewed the images, agree with this report, and edited this report as needed. Signer Name: Willie Arroyo MD Signed: 03/20/2021 3:37 PM Workstation Name: [id number]
--- NOTE | 2021-03-20 16:01 | Consultation ---
History of Present Illness Consult date: 03/20/21 History of present illness: 5 YO Female with no PMH presents ED for evaluation. Patient reports "I could not talk right". Patient states that she experienced a sudden onset of slurred speech approximate 30 minutes prior to arrival. Patient transported [facility] via private vehicle for further care and evaluation of the aforementioned symptoms. The patient was seen and evaluated in the emergency department. All lab and imaging studies reviewed. Patient was found to have a focal neurologic deficit in the emergency department. A code stroke was called. Teleneurology was consulted. The patient was found to have clinical symptoms consistent with CVA. Patient placed in observation status and admitted to medical floor and initiated on CVA protocol. Patient had fever, chills, chest pain, palpitation, productive cough, trauma, syncope, recent ill contacts, or known exposure to COVID-19. No prior admission for review. No medication listed at time of admission reconciliation. Since the hospitalization there has been a clinical improvement , speech has improved, gait is noted to normal per patient . Past History Past Medical History: No medical history Past Surgical History: No surgical history Social history: , lives with family Family history: hypertension Medications and Allergies Allergies Allergy/AdvReac Type Severity Reaction Status Date / Time No Known Allergies Allergy Verified 03/19/21 15:16 Active Meds: Active Medications Acetaminophen (Acetaminophen 325 Mg Tab) 650 mg PO Q4H PRN PRN Reason: Pain, Mild (1-3) Aspirin (Aspirin 325 Mg Tab) 325 mg PO QDAY [facility] Last Admin: 03/20/21 12:14 Dose: Not Given Atorvastatin Calcium (Atorvastatin 40 Mg Tab) 40 mg PO QHS [facility] Last Admin: 03/20/21 00:35 Dose: 40 mg Bisacodyl (Bisacodyl 10 Mg Rect Supp) 10 mg MD QDAY PRN PRN Reason: Constipation Hydromorphone HCl (Hydromorphone 1 Mg/1 Ml Inj) 0.5 mg IV Q23H PRN PRN Reason: Pain , Severe (7-10) Magnesium Hydroxide (Magnesium Hydroxide (Mom) Oral Liqd Udc) 30 ml PO Q4H PRN PRN Reason: Constipation Metoclopramide HCl (Metoclopramide 10 Mg Tab) 10 mg PO Q6H PRN PRN Reason: Nausea And Vomiting Ondansetron HCl (Ondansetron 4 Mg/2 Ml Inj) 4 mg IV Q8H PRN PRN Reason: Nausea And Vomiting Oxycodone/Acetaminophen (Oxycodone /Acetaminophen 5-325mg Tab) 1 tab PO Q16H PRN PRN Reason: Pain, Moderate (4-6) Promethazine HCl (Promethazine 25 Mg Rect Supp) 25 mg MD Q6H PRN PRN Reason: Nausea And Vomiting Sodium Chloride (Sodium Chloride 0.9% 10 Ml Flush Syringe) 10 ml IV PRN PRN PRN Reason: LINE FLUSH Physical Examination - Vital Signs Vital Signs: Vital Signs Temp Pulse Resp BP Pulse Ox 98 F 78 16 156/93 96 03/19/21 15:16 03/19/21 15:16 03/19/21 15:16 03/19/21 15:16 03/19/21 15:16 - Physical Exam Narrative exam: The patient is alert , moves all 4 extremities, finger to nose normal, and back and spine are normal. Results - Laboratory Findings CBC and BMP: 03/19/21 15:19 03/19/21 15:19 Abnormal Lab Findings: Abnormal Labs 03/19/21 03/19/21 03/19/21 15:19 15:19 15:19 RBC 5.90 H Hgb 15.2 H Hct 48.0 H MCH 26 L Cochran % (Auto) 7.6 H INR 0.85 L Potassium 3.3 L Assessment and Plan 1. CVA ( small vessel CVA - MRI Brain reviewed). 2. Risk Factors of CVA discussed . 3. Start ASA 81 mg + Statin low dose . 4. Needs a out patient neurology follow up . 5. If patient is stable will recommend D/C in am. 6. Call back with questions Dr. Allison
[2021-03-20] MEDS: ACETAMINOPHEN 325 MG TAB PO PRN (21:10)
[2021-03-21 06:12] LABS: Basophils % (Auto) 0.7 % (0.0-1.8); Eosinophils # (Auto) 0.2 K/mm3 (0.0-0.4); Hematocrit 46.3 % (30.3-42.9); Lymphocytes # (Auto) 1.8 K/mm3 (1.2-5.4); Lymphocytes % (Auto) 29.2 % (13.4-35.0); Mean Corpuscular HGB Conc 32 % (30-34); Mean Corpuscular Volume 80 fl (79-97); Monocytes # (Auto) 0.4 K/mm3 (0.0-0.8); Monocytes % (Auto) 7.2 % (0.0-7.3); Platelet Count 267 K/mm3 (140-440); Red Blood Count 5.76 M/mm3 (3.65-5.03); Red Cell Distribution Width 13.8 % (13.2-15.2)
[2021-03-21 06:21] LABS: Blood Urea Nitrogen 10 mg/dL (7-17); Hemolysis Index 1
[2021-03-21 06:24] LABS: BUN/Creatinine Ratio 20
[2021-03-21] MEDS: ASPIRIN 325 MG TAB PO SCH (09:48)
[2021-03-21] MEDS: ACETAMINOPHEN 325 MG TAB PO PRN (09:49)
--- NOTE | 2021-03-21 09:51 | Discharge Summary ---
Providers - Providers Date of Admission: 03/20/21 15:54 Date of discharge: 03/21/21 Attending physician: ALFREDA CALVILLO 03/19/21 17:37 Occupational Therapy Evaluate and Treat [CONS] Routine Comment: Reason For Exam: Neuro deficits Physical Therapy Evaluation and Treat [CONS] Routine Comment: Reason For Exam: Neuro deficits 03/19/21 17:43 Speech Therapy Evaluation and Treat [CONS] Routine Reason For Exam: swallow eval 03/19/21 17:45 Occupational Therapy Evaluate and Treat [CONS] Routine Comment: Reason For Exam: Neuro deficits Physical Therapy Evaluation and Treat [CONS] Routine Comment: Reason For Exam: Neuro deficits 03/20/21 07:58 Consult to Physician [CONS] Routine Comment: Consulting Provider: CAIO AGUILERA Physician Instructions: Reason For Exam: CVA Primary care physician: PSYCHOPAEDIC NURSE Hospitalization Reason for admission: CVA Condition: Stable Hospital course: 45-year-old female with no significant past medical history presented through the emergency department with chief complaint of dysarthria that lasted approximately 30 minutes prior to arrival. The patient was admitted with diagnosis of acute CVA and placed on the CVA protocol. The patient underwent echocardiogram, CT scan, MRI of brain and carotid ultrasound. The patient also saw neurology in consultation. Neurology reviewed the MRI brain and felt patient had a small vessel CVA. Findings indicated acute infarction along the posterior lateral aspect of the left parietal and occipital lobes. No hemorrhagic transformation. Echocardiogram did not demonstrate PFO and there was no evidence of thromboembolic source. Patient remained at her baseline mental status throughout the hospitalization and is felt to have received maximal hospital benefit for discharge. Patient will be discharged with secondary prevention with aspirin and Lipitor. Dedicated discharge time 32 minutes. Patient is to follow-up with Dr. Julia abbott as an outpatient Disposition: 30 STILL A PATIENT Final Discharge Diagnosis (Prints w/discharge instructions): Acute CVA, hypokalemia Core Measure Documentation - Palliative Care Palliative Care/ Comfort Measures: Not Applicable - Core Measures Any of the following diagnoses?: stroke - Stroke Discharge Requirements Statin for LDL = or >70 mg/dl on DC: Yes Anticoag for atrial fib/atrial flutter: Not Applicable Antithrombotic for ischemic stroke: Yes Exam - Constitutional Vitals: Temp Pulse Resp BP Pulse Ox 98.5 F 88 16 116/78 98 03/21/21 07:37 03/21/21 07:37 03/21/21 07:37 03/21/21 07:37 03/21/21 07:37 General appearance: Present: no acute distress, well-nourished - EENT Eyes: Present: PERRL ENT: hearing intact, clear oral mucosa - Neck Neck: Present: supple, normal ROM - Respiratory Respiratory effort: normal Respiratory: bilateral: CTA - Cardiovascular Heart Sounds: Present: S1 & S2. Absent: rub, click - Extremities Extremities: pulses symmetrical, No edema Peripheral Pulses: within normal limits - Abdominal General gastrointestinal: Present: soft, non-tender, non-distended, normal bowel sounds Female genitourinary: Present: normal - Integumentary Integumentary: Present: clear, warm, dry - Musculoskeletal Musculoskeletal: gait normal, strength equal bilaterally - Psychiatric Psychiatric: appropriate mood/affect, intact judgment & insight - Neurologic Neurologic: CNII-XII intact, moves all extremities Plan Activity: advance as tolerated Weight Bearing Status: Weight Bear as Tolerated Diet: low fat, low cholesterol, low salt Follow up with: PRIMARY CAREMD [Primary Care Provider] - 3-5 Days CAIO AGUILERA MD [Staff Physician] - 7 Days Prescriptions: Aspirin 325 mg PO QDAY #30 tablet AtorvaSTATin [Lipitor] 40 mg PO QHS #30 tablet
[2021-03-21 12:40] VITALS: BP 129/78
== END 2021-03-21 13:51 | disposition home or self-care (01) | DRG 66 ==
LOC: ED 14:57 → 4A 16:56 → OBSVTOIN 03-20 15:54
PROVIDERS: ADMIT Internal Medicine; ATTEND Hospitalist
DX: I63.9 Cerebral infarction, unspecified (principal); R47.01 Aphasia; E87.6 Hypokalemia; Z82.49 Family history of ischemic heart disease and other diseases of the circulatory system
CPT/HCPCS: 36415; 70450; 70496; 70498; 70551; 80048; 80061; 82550; 82553; 82962; 84484; 85025; 85610; 85670; 85730; 93005; 93306; 93880; G0378; Q9967